=== PATIENT | female | born 1965 | race Caucasian/White ===

== ENCOUNTER 2021-01-14 15:59 | Emergency (ER) | payer BC, OTHER | END 2021-01-14 17:52 | disposition home or self-care (01) | LOC: CSHERS 15:59 | DX: M54.2 Cervicalgia (principal); R20.2 Paresthesia of skin; V89.2XXA Person injured in unspecified motor-vehicle accident, traffic, initial encounter | CPT/HCPCS: 72125; 72128 ==

== ENCOUNTER 2021-11-18 13:05 | Emergency (ER) | payer BC | END 2021-11-18 15:04 | disposition home or self-care (01) | LOC: CSHERS 13:05 | DX: S00.03XA Contusion of scalp, initial encounter (principal); S00.83XA Contusion of other part of head, initial encounter; W19.XXXA Unspecified fall, initial encounter | CPT/HCPCS: 70450; 70486 ==